=== PATIENT | male | born 1960 ===

== ENCOUNTER 2021-04-13 07:05 | Inpatient (IN) | payer SELFPAY ==
[~2021-04-13] VITALS: Ht 180.3 cm; Wt 88.8 kg
[2021-04-13] MEDS ORDERED: IPRATROPIUM BROM 0.5 MG/2.5ML INH SOL NEB ONE ×2 (07:30→12:30)
[2021-04-13] MEDS ORDERED: methylPREDNISolone SOD SUCC 125 MG/2 ML VL IV ONE (07:30)
[2021-04-13] MEDS ORDERED: SODIUM CHLORIDE 0.9% 1,000 ML IV ONE (07:30)
[2021-04-13] MEDS ORDERED: SODIUM CHLORIDE 0.9% 1,000 ML IVB ONE (07:30)
[2021-04-13] MEDS ORDERED: ALBUTEROL SULF 2.5 MG/0.5ML(0.5%) NEB SOLN NEB ONE ×2 (07:30→12:30)
[2021-04-13 09:28] LABS: Basophils # (auto) 0 10 ^3/uL (0-0.2); Basophils % (auto) 0.4 % (0.0-2.0); Eosinophils # (auto) 0.6 10 ^3/uL (0-0.8); Eosinophils % (auto) 9.2 % (0.0-7.0); Hematocrit 44.6 % (41.0-53.0); Hemoglobin 14.7 g/dL (13.5-17.5); Lymphocytes % (auto) 14.7 % (10.0-50.0); Mean Corpuscular Hemoglobin 30.1 pg (28.0-32.0); Mean Corpuscular Volume 91.2 fL (80.0-100.0); Monocytes # (auto) 0.8 10 ^3/uL (0-1.3); Monocytes % (auto) 11.6 % (0.0-12.0); Neutrophils # (auto) 4.3 10 ^3/uL (1.6-8.6); Neutrophils % (auto) 64.1 % (37.0-80.0); Nucleated Red Blood Cells % 0.1 %; Red Blood Cells 4.88 10^6/uL (4.5-5.90); Red Cell Distribution Width 13.6 % (11.8-14.3); White Blood Cell 6.8 10^3/uL (4.4-10.8)
[2021-04-13 09:31] LABS: Albumin 3.2 g/dL (3.4-5.0); Calcium 9.1 mg/dL (8.5-10.1)
[2021-04-13 09:35] LABS: BUN/Creatinine Ratio 24.3; Bilirubin, Total 0.5 mg/dL (0.2-1.0); Total Protein 7.4 g/dL (6.4-8.2)
[2021-04-13] MEDS ORDERED: MORPHINE SULFATE INJECTION 2 MG/ML SYRG IV PRN (12:30)
[2021-04-13] MEDS ORDERED: NITROGLYCERIN 0.4 MG SL TAB SL PRN (12:30)
[2021-04-13] MEDS ORDERED: LACTULOSE 20Gm/30ML SOLN PO PRN (12:45)
[2021-04-13] MEDS ORDERED: TEMAZEPAM 15 MG CAP PO PRN (12:45)
[2021-04-13] MEDS ORDERED: ACETAMINOPHEN 500 MG TAB PO PRN (12:45)
[2021-04-13] MEDS ORDERED: ALBUTEROL SULF 2.5 MG/0.5ML(0.5%) NEB SOLN NEB PRN (12:45)
[2021-04-13] MEDS ORDERED: PROMETHAZINE HCL 25 MG/ML 1ML IV PRN (12:45)
[2021-04-13] MEDS ORDERED: THIAMINE 100mg/ml INJ (200mg/2ml VIAL) IV ONE (12:45)
[2021-04-13] MEDS: SODIUM CHLORIDE 0.9% 1,000 ML IV SCH (12:45)
[2021-04-13] MEDS ORDERED: chlordiazePOXIDE HCL 25 MG CAP PO PRN (12:45)
[2021-04-13] MEDS ORDERED: DEXTROSE (50%) 50ML SYRG IV PRN (12:45)
[2021-04-13] MEDS ORDERED: traMADol HCL 50 MG TAB PO PRN (12:45)
[2021-04-13] MEDS: DOXYCYCLINE 100MG/250ML 250 ML IV SCH (14:30)
[2021-04-13] MEDS: ENOXAPARIN SOD 40 MG/0.4 ML SYRINGE SC SCH (16:52)
[2021-04-13 17:00] VITALS: BP 153/89
[2021-04-13] MEDS: ACCU-CHEK COMFORT CURVE STRIP VI SCH ×2 (17:00→22:00)
[2021-04-13] MEDS: chlordiazePOXIDE HCL 5 MG CAP PO SCH (18:00)
[2021-04-13] MEDS: IPRATROPIUM BROM 0.5 MG/2.5ML INH SOL NEB SCH (18:51)
[2021-04-13] MEDS: ALBUTEROL SULF 2.5 MG/0.5ML(0.5%) NEB SOLN NEB SCH (18:51)
[2021-04-13] MEDS: methylPREDNISolone SOD SUCC 40 MG/ML VL IV SCH (21:03)
[2021-04-13] MEDS: METOPROLOL TARTRATE 25 MG TAB PO SCH (21:04)
[2021-04-13] MEDS: ATORVASTATIN 20 MG TAB PO SCH (21:04)
[2021-04-13 21:51] VITALS: BP 132/88
[2021-04-14] MEDS: IPRATROPIUM BROM 0.5 MG/2.5ML INH SOL NEB SCH ×5 (00:17→23:39)
[2021-04-14] MEDS: DOXYCYCLINE 100MG/250ML 250 ML IV SCH ×2 (00:31→12:45)
[2021-04-14] MEDS: chlordiazePOXIDE HCL 5 MG CAP PO SCH ×4 (00:31→18:00)
[2021-04-14] MEDS: SODIUM CHLORIDE 0.9% 1,000 ML IV SCH ×2 (02:05→15:25)
[2021-04-14 03:58] VITALS: BP 128/67
[2021-04-14] MEDS: ACCU-CHEK COMFORT CURVE STRIP VI SCH ×4 (06:00→22:00)
[2021-04-14] MEDS: ALBUTEROL SULF 2.5 MG/0.5ML(0.5%) NEB SOLN NEB SCH ×6 (06:22→23:39)
[2021-04-14 06:25] LABS: Basophils # (auto) 0 10 ^3/uL (0-0.2); Basophils % (auto) 0.1 % (0.0-2.0); Eosinophils # (auto) 0 10 ^3/uL (0-0.8); Hematocrit 41.4 % (41.0-53.0); Lymphocytes # (auto) 0.5 10 ^3/uL (0.4-5.4); Lymphocytes % (auto) 6.8 % (10.0-50.0); Mean Corpuscular Hemoglobin 30.8 pg (28.0-32.0); Mean Corpuscular Hgb Conc. 33.8 g/dL (32.0-36.0); Mean Corpuscular Volume 91.2 fL (80.0-100.0); Monocytes # (auto) 0.2 10 ^3/uL (0-1.3); Neutrophils # (auto) 7.2 10 ^3/uL (1.6-8.6); Neutrophils % (auto) 91.1 % (37.0-80.0); Red Blood Cells 4.53 10^6/uL (4.5-5.90); Red Cell Distribution Width 13.5 % (11.8-14.3); White Blood Cell 7.9 10^3/uL (4.4-10.8)
[2021-04-14 06:29] LABS: Cholesterol 140 mg/dL (< 200); HDL Cholesterol 52 mg/dL (40-59); LDL Cholesterol 87 mg/dL (< 100); Triglycerides 49 mg/dL (< 150)
[2021-04-14 09:00] VITALS: BP 120/79
[2021-04-14] MEDS: methylPREDNISolone SOD SUCC 40 MG/ML VL IV SCH ×2 (09:00→22:28)
[2021-04-14 09:01] VITALS: BP 132/82
[2021-04-14] MEDS ORDERED: ENALAPRIL MALEATE 2.5 MG TAB PO SCH (10:00)
[2021-04-14] MEDS: METOPROLOL TARTRATE 25 MG TAB PO SCH ×2 (10:00→21:30)
[2021-04-14] MEDS: ASPirin 81 mg TAB PO SCH (10:00)
[2021-04-14] MEDS: NITROGLYCERIN 0.2MG/HR TOPICAL PATCH TD SCH (10:00)
[2021-04-14] MEDS: THIAMINE 100mg/ml INJ (200mg/2ml VIAL) IV SCH (10:00)
[2021-04-14 13:00] VITALS: BP 125/75
[2021-04-14] MEDS: ENOXAPARIN SOD 40 MG/0.4 ML SYRINGE SC SCH (15:00)
[2021-04-14 17:00] VITALS: BP 120/79
[2021-04-14] MEDS: ATORVASTATIN 20 MG TAB PO SCH (21:19)
[2021-04-14 22:00] VITALS: BP 118/85
[2021-04-15] MEDS: chlordiazePOXIDE HCL 5 MG CAP PO SCH ×4 (00:26→17:22)
[2021-04-15] MEDS: DOXYCYCLINE 100MG/250ML 250 ML IV SCH (00:26)
[2021-04-15] MEDS ORDERED: MONTELUKAST SODIUM 10 MG TAB PO ONE (04:15)
[2021-04-15] MEDS ORDERED: LABETALOL HCL 5 MG/ML 4ML SYRINGE IV PRN (04:15)
[2021-04-15 05:00] VITALS: BP 136/83
[2021-04-15] MEDS: SODIUM CHLORIDE 0.9% 1,000 ML IV SCH ×4 (05:00→06:35)
[2021-04-15] MEDS: IPRATROPIUM BROM 0.5 MG/2.5ML INH SOL NEB SCH ×3 (05:36→18:39)
[2021-04-15] MEDS: ALBUTEROL SULF 2.5 MG/0.5ML(0.5%) NEB SOLN NEB SCH ×3 (05:37→18:39)
[2021-04-15] MEDS ORDERED: FUROSEMIDE 20 MG/2 ML VIAL IV SCH (06:00)
[2021-04-15] MEDS: methylPREDNISolone SOD SUCC 40 MG/ML VL IV SCH ×3 (06:23→22:07)
[2021-04-15] MEDS: ACCU-CHEK COMFORT CURVE STRIP VI SCH ×4 (06:51→22:08)
[2021-04-15 06:52] LABS: Basophils # (auto) 0 10 ^3/uL (0-0.2); Basophils % (auto) 0.1 % (0.0-2.0); Eosinophils # (auto) 0 10 ^3/uL (0-0.8); Hematocrit 36.4 % (41.0-53.0); Hemoglobin 12.2 g/dL (13.5-17.5); Lymphocytes # (auto) 0.6 10 ^3/uL (0.4-5.4); Lymphocytes % (auto) 6.8 % (10.0-50.0); Mean Corpuscular Hemoglobin 30.5 pg (28.0-32.0); Mean Corpuscular Hgb Conc. 33.4 g/dL (32.0-36.0); Mean Corpuscular Volume 91.2 fL (80.0-100.0); Monocytes # (auto) 0.2 10 ^3/uL (0-1.3); Monocytes % (auto) 2.2 % (0.0-12.0); Neutrophils # (auto) 7.5 10 ^3/uL (1.6-8.6); Neutrophils % (auto) 90.9 % (37.0-80.0); Red Blood Cells 3.99 10^6/uL (4.5-5.90); Red Cell Distribution Width 13.3 % (11.8-14.3); White Blood Cell 8.2 10^3/uL (4.4-10.8)
[2021-04-15 07:05] LABS: Potassium 4.2 mmol/L (3.5-5.1)
[2021-04-15 07:08] LABS: INR 1.06 (0.9-1.15); Partial Thromboplastin Time 25.7 sec (23.6-33.0)
[2021-04-15 07:23] LABS: Albumin 2.5 g/dL (3.4-5.0); BUN/Creatinine Ratio 40.3; Bilirubin, Total 0.2 mg/dL (0.2-1.0); Calcium 8.2 mg/dL (8.5-10.1); Magnesium 2.5 mg/dL (1.6-2.6); Total Protein 5.9 g/dL (6.4-8.2)
[2021-04-15 08:00] VITALS: BP 138/82
[2021-04-15 09:44] LABS: Free T4 (Free Thyroxine) 2.91 ng/dL (0.89-1.76)
[2021-04-15 09:45] LABS: Free T3 8.85 pg/mL (2.3-4.2)
[2021-04-15] MEDS: THIAMINE 100mg/ml INJ (200mg/2ml VIAL) IV SCH (10:54)
[2021-04-15] MEDS: FAMOTIDINE (10MG/ML) 2ML VL IV SCH ×2 (10:54→22:07)
[2021-04-15] MEDS: AZITHROMYCIN 500MG/ 250ML 250 ML IV SCH (10:55)
[2021-04-15] MEDS: ASPirin 81 mg TAB PO SCH (10:55)
[2021-04-15] MEDS: METOPROLOL SUCCINATE XL 50 MG TAB PO SCH (10:58)
[2021-04-15] MEDS: NITROGLYCERIN 0.2MG/HR TOPICAL PATCH TD SCH (10:59)
[2021-04-15 12:00] VITALS: BP 133/90
[2021-04-15 16:00] VITALS: BP 140/82
[2021-04-15] MEDS: ENOXAPARIN SOD 40 MG/0.4 ML SYRINGE SC SCH (16:12)
[2021-04-15] MEDS ORDERED: IBUP200C3 PO (17:28)
[2021-04-15 22:00] VITALS: BP 146/92
[2021-04-15] MEDS ORDERED: ATORVASTATIN 20 MG TAB PO SCH (22:00)
[2021-04-15] MEDS: MONTELUKAST SODIUM 10 MG TAB PO SCH (22:06)
[2021-04-15] MEDS: methIMAzole 5 MG TAB PO SCH (22:07)
[2021-04-16] MEDS: chlordiazePOXIDE HCL 5 MG CAP PO SCH ×4 (00:19→18:10)
[2021-04-16] MEDS: ALBUTEROL SULF 2.5 MG/0.5ML(0.5%) NEB SOLN NEB SCH ×4 (00:41→19:25)
[2021-04-16] MEDS: IPRATROPIUM BROM 0.5 MG/2.5ML INH SOL NEB SCH ×4 (00:41→19:25)
[2021-04-16 05:00] VITALS: BP 143/85
[2021-04-16 05:42] LABS: Basophils # (auto) 0 10 ^3/uL (0-0.2); Basophils % (auto) 0.1 % (0.0-2.0); Eosinophils # (auto) 0 10 ^3/uL (0-0.8); Hematocrit 38.5 % (41.0-53.0); Hemoglobin 13.1 g/dL (13.5-17.5); Lymphocytes # (auto) 0.7 10 ^3/uL (0.4-5.4); Lymphocytes % (auto) 7.8 % (10.0-50.0); Mean Corpuscular Hemoglobin 30.9 pg (28.0-32.0); Mean Corpuscular Volume 90.7 fL (80.0-100.0); Monocytes # (auto) 0.2 10 ^3/uL (0-1.3); Monocytes % (auto) 2.3 % (0.0-12.0); Neutrophils # (auto) 7.6 10 ^3/uL (1.6-8.6); Neutrophils % (auto) 89.8 % (37.0-80.0); Nucleated Red Blood Cells % 0.1 %; Red Blood Cells 4.25 10^6/uL (4.5-5.90); Red Cell Distribution Width 13.2 % (11.8-14.3); White Blood Cell 8.5 10^3/uL (4.4-10.8)
[2021-04-16 06:05] LABS: INR 1.04 (0.9-1.15); Partial Thromboplastin Time 24.3 sec (23.6-33.0)
[2021-04-16 06:10] LABS: Albumin 2.7 g/dL (3.4-5.0); Calcium 8.2 mg/dL (8.5-10.1); Magnesium 2.5 mg/dL (1.6-2.6)
[2021-04-16 06:16] LABS: BUN/Creatinine Ratio 41.6; Bilirubin, Total 0.3 mg/dL (0.2-1.0); Phosphorus 3.4 mg/dL (2.5-4.90); Total Protein 6.1 g/dL (6.4-8.2)
[2021-04-16] MEDS: methylPREDNISolone SOD SUCC 40 MG/ML VL IV SCH ×3 (06:18→22:46)
[2021-04-16] MEDS: ACCU-CHEK COMFORT CURVE STRIP VI SCH ×4 (06:18→22:49)
[2021-04-16 09:00] VITALS: BP 154/91
[2021-04-16] MEDS: FAMOTIDINE (10MG/ML) 2ML VL IV SCH ×2 (09:44→22:45)
[2021-04-16] MEDS: METOPROLOL SUCCINATE XL 50 MG TAB PO SCH (09:45)
[2021-04-16] MEDS: THIAMINE 100mg/ml INJ (200mg/2ml VIAL) IV SCH (09:45)
[2021-04-16] MEDS: methIMAzole 5 MG TAB PO SCH ×2 (09:45→22:47)
[2021-04-16] MEDS: ASPirin 81 mg TAB PO SCH (09:45)
[2021-04-16] MEDS: AZITHROMYCIN 500MG/ 250ML 250 ML IV SCH (09:46)
[2021-04-16 13:00] VITALS: BP 158/83
[2021-04-16] MEDS: ENOXAPARIN SOD 40 MG/0.4 ML SYRINGE SC SCH (15:00)
[2021-04-16] MEDS ORDERED: FOLIC ACID 1 MG TAB PO ONE (15:30)
[2021-04-16 17:00] VITALS: BP 158/80
[2021-04-16 18:55] VITALS: BP 158/80
[2021-04-16] MEDS: ACETYLCYSTEINE 10 %(100MG/ML) SOL 4ML NEB SCH (19:25)
[2021-04-16 22:00] VITALS: BP 152/95
[2021-04-16] MEDS: MONTELUKAST SODIUM 10 MG TAB PO SCH (22:46)
[2021-04-17] MEDS: ALBUTEROL SULF 2.5 MG/0.5ML(0.5%) NEB SOLN NEB SCH ×4 (00:27→19:13)
[2021-04-17] MEDS: IPRATROPIUM BROM 0.5 MG/2.5ML INH SOL NEB SCH ×4 (00:27→19:13)
[2021-04-17] MEDS: chlordiazePOXIDE HCL 5 MG CAP PO SCH ×4 (00:29→19:43)
[2021-04-17 05:00] VITALS: BP 137/77
[2021-04-17] MEDS: methylPREDNISolone SOD SUCC 40 MG/ML VL IV SCH ×3 (05:56→21:18)
[2021-04-17] MEDS: ACCU-CHEK COMFORT CURVE STRIP VI SCH ×4 (05:58→22:23)
[2021-04-17] MEDS: ACETYLCYSTEINE 10 %(100MG/ML) SOL 4ML NEB SCH ×3 (06:40→19:13)
[2021-04-17 09:00] VITALS: BP 132/79
[2021-04-17] MEDS: FOLIC ACID 1 MG TAB PO SCH (09:47)
[2021-04-17] MEDS: methIMAzole 5 MG TAB PO SCH ×2 (09:47→21:21)
[2021-04-17] MEDS: ASPirin 81 mg TAB PO SCH (09:47)
[2021-04-17] MEDS: METOPROLOL SUCCINATE XL 50 MG TAB PO SCH (09:47)
[2021-04-17] MEDS: THIAMINE 100mg/ml INJ (200mg/2ml VIAL) IV SCH (09:48)
[2021-04-17] MEDS: AZITHROMYCIN 500MG/ 250ML 250 ML IV SCH (09:49)
[2021-04-17] MEDS: FAMOTIDINE (10MG/ML) 2ML VL IV SCH ×2 (09:53→21:17)
[2021-04-17 13:00] VITALS: BP 138/86
[2021-04-17] MEDS: ENOXAPARIN SOD 40 MG/0.4 ML SYRINGE SC SCH (14:47)
[2021-04-17 17:00] VITALS: BP 126/81
[2021-04-17] MEDS ORDERED: CEFTRIAXONE SODIUM 2 GM in D5W 5% 50 ML IV ONE (17:45)
[2021-04-17] MEDS: MONTELUKAST SODIUM 10 MG TAB PO SCH (21:19)
[2021-04-17 22:00] VITALS: BP 139/76
[2021-04-18] MEDS: IPRATROPIUM BROM 0.5 MG/2.5ML INH SOL NEB SCH ×3 (00:13→12:02)
[2021-04-18] MEDS: ALBUTEROL SULF 2.5 MG/0.5ML(0.5%) NEB SOLN NEB SCH ×3 (00:13→12:02)
[2021-04-18] MEDS: chlordiazePOXIDE HCL 5 MG CAP PO SCH ×3 (00:19→12:16)
[2021-04-18 05:00] VITALS: BP 140/79
[2021-04-18] MEDS: ACCU-CHEK COMFORT CURVE STRIP VI SCH ×2 (06:06→11:30)
[2021-04-18] MEDS: methylPREDNISolone SOD SUCC 40 MG/ML VL IV SCH ×2 (06:06→15:57)
[2021-04-18] MEDS: ACETYLCYSTEINE 10 %(100MG/ML) SOL 4ML NEB SCH ×2 (07:09→12:02)
[2021-04-18 09:00] VITALS: BP 143/93
[2021-04-18] MEDS ORDERED: cefTRIAXone 1GM/50ML D5W 50 ML IV SCH (09:00)
[2021-04-18] MEDS: AZITHROMYCIN 500MG/ 250ML 250 ML IV SCH (09:05)
[2021-04-18] MEDS: FAMOTIDINE (10MG/ML) 2ML VL IV SCH (09:06)
[2021-04-18] MEDS: ASPirin 81 mg TAB PO SCH (09:08)
[2021-04-18] MEDS: methIMAzole 5 MG TAB PO SCH (09:09)
[2021-04-18] MEDS: FOLIC ACID 1 MG TAB PO SCH (09:09)
[2021-04-18] MEDS: THIAMINE 100mg/ml INJ (200mg/2ml VIAL) IV SCH (09:50)
[2021-04-18] MEDS: METOPROLOL SUCCINATE XL 50 MG TAB PO SCH (09:53)
[2021-04-18 12:00] VITALS: BP 148/77
[2021-04-18] MEDS: ENOXAPARIN SOD 40 MG/0.4 ML SYRINGE SC SCH (15:00)
[2021-04-18 16:00] VITALS: BP 153/89
== END 2021-04-18 18:00 | disposition home or self-care (01) | DRG 193 ==
LOC: ER 07:05 → TELE 12:28 → TELE-WESTW 17:47
PROVIDERS: ADMIT Internal Medicine; ATTEND Internal Medicine
DX: J15.4 Pneumonia due to other streptococci (principal); I21.A1 Myocardial infarction type 2; J96.21 Acute and chronic respiratory failure with hypoxia; J44.1 Chronic obstructive pulmonary disease with (acute) exacerbation; E44.1 Mild protein-calorie malnutrition; F10.239 Alcohol dependence with withdrawal, unspecified; J44.0 Chronic obstructive pulmonary disease with (acute) lower respiratory infection; J45.901 Unspecified asthma with (acute) exacerbation; M35.1 Other overlap syndromes; J20.9 Acute bronchitis, unspecified; R73.03 Prediabetes; Z20.822 Contact with and (suspected) exposure to COVID-19; R00.0 Tachycardia, unspecified; E05.00 Thyrotoxicosis with diffuse goiter without thyrotoxic crisis or storm; I10 Essential (primary) hypertension; R73.9 Hyperglycemia, unspecified; Z68.27 Body mass index [BMI] 27.0-27.9, adult
CPT/HCPCS: 36415; 36600; 71045; 71250; 76536; 80053; 80061; 82550; 82805; 82962; 83036; 83735; 83880; 84100; 84439; 84443; 84480; 84481; 84484; 85025; 85379; 85610; 85652; 85730; 86141; 87070; 87077; 87205; 87426; 93005; 93306; 93971; 94640; 96361; 96374; 96375; G0378; J0696; J3490; J7060

== ENCOUNTER → 2021-08-14 | Outpatient (CLI) | payer MEDICAID ==
[~2021-08-14] MED LIST: IBUP200C3 PO
[2021-08-14 10:11] LABS: Basophils # (auto) 0 10 ^3/uL (0-0.2); Basophils % (auto) 0.7 % (0.0-2.0); Eosinophils # (auto) 0.8 10 ^3/uL (0-0.8); Eosinophils % (auto) 12.5 % (0.0-7.0); Hematocrit 47.5 % (41.0-53.0); Hemoglobin 15.8 g/dL (13.5-17.5); Lymphocytes # (auto) 1.9 10 ^3/uL (0.4-5.4); Lymphocytes % (auto) 31.1 % (10.0-50.0); Mean Corpuscular Hemoglobin 31.4 pg (28.0-32.0); Mean Corpuscular Hgb Conc. 33.2 g/dL (32.0-36.0); Mean Corpuscular Volume 94.6 fL (80.0-100.0); Monocytes # (auto) 0.5 10 ^3/uL (0-1.3); Monocytes % (auto) 7.5 % (0.0-12.0); Neutrophils # (auto) 2.9 10 ^3/uL (1.6-8.6); Neutrophils % (auto) 48.2 % (37.0-80.0); Nucleated Red Blood Cells % 0.1 %; Red Blood Cells 5.02 10^6/uL (4.5-5.90); Red Cell Distribution Width 13.3 % (11.8-14.3); White Blood Cell 6.1 10^3/uL (4.4-10.8)
[2021-08-14 10:14] LABS: Albumin 3.6 g/dL (3.4-5.0); Potassium 3.8 mmol/L (3.5-5.1)
[2021-08-14 10:21] LABS: Bilirubin, Total 0.8 mg/dL (0.2-1.0); Calcium 8.8 mg/dL (8.5-10.1); Total Protein 7.3 g/dL (6.4-8.2)
[2021-08-14 10:33] LABS: Free T4 (Free Thyroxine) 0.78 ng/dL (0.89-1.76); Prostate Specific Antigen 2.72 ng/mL (0.0-4.0)
== END | disposition home or self-care (01) ==
LOC: LAB 07:47
PROVIDERS: ATTEND Nurse Practitioner Family
DX: R73.03 Prediabetes (principal); E05.90 Thyrotoxicosis, unspecified without thyrotoxic crisis or storm; R06.02 Shortness of breath; I10 Essential (primary) hypertension
CPT/HCPCS: 36415; 80053; 80061; 83036; 84153; 84439; 84443; 85025

== ENCOUNTER 2021-08-24 10:37 | Inpatient (IN) | payer MEDICAID ==
[~2021-08-24] VITALS: Ht 180.3 cm; Wt 86.3 kg
[2021-08-24] MEDS ORDERED: SODIUM CHLORIDE 0.9% 1,000 ML IV ONE (11:30)
[2021-08-24] MEDS ORDERED: methylPREDNISolone SOD SUCC 125 MG/2 ML VL IV ONE (11:30)
[2021-08-24] MEDS ORDERED: IPRATROPIUM BROM 0.5 MG/2.5ML INH SOL NEB ONE ×2 (11:30→16:15)
[2021-08-24] MEDS ORDERED: ALBUTEROL SULF 2.5 MG/0.5ML(0.5%) NEB SOLN NEB ONE ×2 (11:30→16:15)
[2021-08-24 12:16] LABS: Basophils # (auto) 0 10 ^3/uL (0-0.2); Basophils % (auto) 0.5 % (0.0-2.0); Eosinophils # (auto) 0.8 10 ^3/uL (0-0.8); Eosinophils % (auto) 11.8 % (0.0-7.0); Hematocrit 46.6 % (41.0-53.0); Hemoglobin 15.6 g/dL (13.5-17.5); Lymphocytes # (auto) 1.2 10 ^3/uL (0.4-5.4); Lymphocytes % (auto) 16.6 % (10.0-50.0); Mean Corpuscular Hemoglobin 31.8 pg (28.0-32.0); Mean Corpuscular Hgb Conc. 33.6 g/dL (32.0-36.0); Mean Corpuscular Volume 94.6 fL (80.0-100.0); Monocytes # (auto) 0.6 10 ^3/uL (0-1.3); Monocytes % (auto) 7.9 % (0.0-12.0); Neutrophils # (auto) 4.4 10 ^3/uL (1.6-8.6); Neutrophils % (auto) 63.2 % (37.0-80.0); Red Blood Cells 4.93 10^6/uL (4.5-5.90); Red Cell Distribution Width 13.5 % (11.8-14.3)
[2021-08-24 12:19] LABS: Albumin 3.4 g/dL (3.4-5.0); Calcium 8.4 mg/dL (8.5-10.1); Potassium 4.1 mmol/L (3.5-5.1)
[2021-08-24 12:24] LABS: BUN/Creatinine Ratio 17.2; Bilirubin, Total 0.4 mg/dL (0.2-1.0); Total Protein 6.9 g/dL (6.4-8.2)
[2021-08-24] MEDS ORDERED: MORPHINE SULFATE INJECTION 2 MG/ML SYRG IV PRN ×2 (14:30→16:30)
[2021-08-24] MEDS ORDERED: NITROGLYCERIN 0.4 MG SL TAB SL PRN (14:30)
[2021-08-24] MEDS ORDERED: ATENOLOL 25 MG TAB PO ONE (16:15)
[2021-08-24] MEDS ORDERED: AZITHROMYCIN 500MG/ 250ML 250 ML IV ONE (16:15)
[2021-08-24] MEDS ORDERED: HYDROcodone-ACET 5/325MG TAB PO PRN ×2 (16:30)
[2021-08-24] MEDS ORDERED: DOCUSATE SOD 100 MG CAP PO PRN (16:30)
[2021-08-24] MEDS ORDERED: hydrALAZINE HCL 20 MG/ML VL IV PRN (16:30)
[2021-08-24] MEDS ORDERED: THIAMINE 100mg/ml INJ (200mg/2ml VIAL) IV ONE (16:30)
[2021-08-24] MEDS ORDERED: FAMOTIDINE (10MG/ML) 2ML VL IV ONE (16:30)
[2021-08-24] MEDS ORDERED: FOLIC ACID 1 MG TAB PO ONE (16:30)
[2021-08-24] MEDS ORDERED: LACTULOSE 20Gm/30ML SOLN PO PRN (16:30)
[2021-08-24] MEDS ORDERED: PROMETHAZINE-DM 5 ML ORAL SYRUP PO PRN (16:30)
[2021-08-24] MEDS ORDERED: LORazepam 0.5 MG TAB PO PRN (16:30)
[2021-08-24] MEDS ORDERED: HYDROcodone-ACET 5/325MG TAB PO ONE (16:30)
[2021-08-24] MEDS ORDERED: ONDANSETRON HCL 4 MG/2 ML VIAL IV PRN (16:30)
[2021-08-24] MEDS ORDERED: methIMAzole 5 MG TAB PO ONE (17:00)
[2021-08-24] MEDS: SODIUM CHLORIDE 0.9% 1,000 ML IV SCH ×2 (17:17→21:53)
[2021-08-24] MEDS: ALBUTEROL SULF 2.5 MG/0.5ML(0.5%) NEB SOLN NEB SCH ×2 (18:53→22:48)
[2021-08-24] MEDS: IPRATROPIUM BROM 0.5 MG/2.5ML INH SOL NEB SCH ×2 (18:54→22:48)
[2021-08-24] MEDS: BUDESONIDE (INHALATION) 0.5 MG/2 ML NEB NEB SCH (18:54)
[2021-08-24 19:35] LABS: Magnesium 2.2 mg/dL (1.6-2.6); Phosphorus 3.2 mg/dL (2.5-4.90)
[2021-08-24 20:20] LABS: INR 1.08 (0.9-1.15); Partial Thromboplastin Time 28.5 sec (23.6-33.0)
[2021-08-24] MEDS: ATORVASTATIN 20 MG TAB PO SCH (21:52)
[2021-08-24] MEDS: ATENOLOL 25 MG TAB PO SCH (21:52)
[2021-08-24] MEDS: PANTOPRAZOLE 40 MG/10 ML VIAL INJ IV SCH (21:52)
[2021-08-24] MEDS: methylPREDNISolone SOD SUCC 40 MG/ML VL IV SCH (21:52)
[2021-08-24 23:10] VITALS: BP 142/79
[2021-08-24 23:56] VITALS: BP 133/86
[2021-08-25] MEDS: ALBUTEROL SULF 2.5 MG/0.5ML(0.5%) NEB SOLN NEB SCH ×6 (02:00→22:08)
[2021-08-25] MEDS: IPRATROPIUM BROM 0.5 MG/2.5ML INH SOL NEB SCH ×6 (02:00→22:08)
[2021-08-25] MEDS ORDERED: ALB2.5IS (02:40)
[2021-08-25] MEDS ORDERED: METH5T PO (02:40)
[2021-08-25] MEDS ORDERED: METO-289 PO (02:40)
[2021-08-25] MEDS ORDERED: TIOT17SP PO (02:40)
[2021-08-25] MEDS ORDERED: MULT-928 PO (02:40)
[2021-08-25] MEDS ORDERED: ALBUAER3 INH (02:40)
[2021-08-25 04:54] VITALS: BP_SYST 108; BP_SYST 131; BP_DIAS 59; BP_DIAS 80
[2021-08-25 05:07] LABS: Urine Bacteria NONE SEEN /hpf (None Seen); Urine Blood Negative /uL (Negative); Urine Specific Gravity 1.015 (1.001-1.035); Urine WBC 1 /hpf (0 - 3)
[2021-08-25] MEDS: methylPREDNISolone SOD SUCC 40 MG/ML VL IV SCH ×3 (05:07→22:22)
[2021-08-25 05:18] LABS: Alcohol, Urine < 3.0 mg/dL (0-10); Amphetamine Screen, Urine POSITIVE (NEGATIVE); Benzodiazephine Screen, Urine NEGATIVE (NEGATIVE); Cannabinoid Screen, Urine NEGATIVE (NEGATIVE); Cocaine Screen, Urine NEGATIVE (NEGATIVE); Opiate Scree,Urine NEGATIVE (NEGATIVE); Phencyclidine Screen, Urine NEGATIVE (NEGATIVE)
[2021-08-25 05:26] LABS: Barbiturate Scree,Urine NEGATIVE (NEGATIVE)
[2021-08-25 07:20] LABS: INR 1.07 (0.9-1.15); Partial Thromboplastin Time 27.9 sec (23.6-33.0)
[2021-08-25 08:00] LABS: CRP High Sensitivity 0.66 mg/dL (< 0.3); Magnesium 2.2 mg/dL (1.6-2.6); Phosphorus 4.4 mg/dL (2.5-4.90); Uric Acid 6.8 mg/dL (3.5-7.2)
[2021-08-25 09:00] VITALS: BP 137/81
[2021-08-25] MEDS ORDERED: ENOXAPARIN SOD 40 MG/0.4 ML SYRINGE SC SCH (10:00)
[2021-08-25] MEDS ORDERED: FAMOTIDINE (10MG/ML) 2ML VL IV SCH (10:00)
[2021-08-25] MEDS: BUDESONIDE (INHALATION) 0.5 MG/2 ML NEB NEB SCH ×2 (10:03→18:04)
[2021-08-25] MEDS: PANTOPRAZOLE 40 MG/10 ML VIAL INJ IV SCH (10:36)
[2021-08-25] MEDS: AZITHROMYCIN 500MG/ 250ML 250 ML IV SCH (10:36)
[2021-08-25] MEDS: methIMAzole 5 MG TAB PO SCH (10:37)
[2021-08-25] MEDS: THIAMINE HCL 100 MG TAB PO SCH (10:37)
[2021-08-25] MEDS: FOLIC ACID 1 MG TAB PO SCH (10:38)
[2021-08-25] MEDS: ASPirin 81 mg TAB PO SCH (10:39)
[2021-08-25] MEDS: ATENOLOL 25 MG TAB PO SCH ×2 (10:39→22:23)
[2021-08-25] MEDS ORDERED: MONTELUKAST SODIUM 10 MG TAB PO ONE (10:45)
[2021-08-25 13:00] VITALS: BP 140/54
[2021-08-25 17:00] VITALS: BP 109/67
[2021-08-25 22:00] VITALS: BP 126/67
[2021-08-25] MEDS: MONTELUKAST SODIUM 10 MG TAB PO SCH (22:22)
[2021-08-25] MEDS: ATORVASTATIN 20 MG TAB PO SCH (22:23)
[2021-08-26] MEDS: SODIUM CHLORIDE 0.9% 1,000 ML IV SCH (01:42)
[2021-08-26] MEDS: ALBUTEROL SULF 2.5 MG/0.5ML(0.5%) NEB SOLN NEB SCH ×5 (02:00→22:08)
[2021-08-26] MEDS: IPRATROPIUM BROM 0.5 MG/2.5ML INH SOL NEB SCH ×5 (02:00→22:08)
[2021-08-26 05:00] VITALS: BP 123/64
[2021-08-26 05:35] LABS: Basophils # (auto) 0 10 ^3/uL (0-0.2); Basophils % (auto) 0.1 % (0.0-2.0); Eosinophils # (auto) 0 10 ^3/uL (0-0.8); Hematocrit 41.8 % (41.0-53.0); Hemoglobin 13.9 g/dL (13.5-17.5); Lymphocytes # (auto) 0.6 10 ^3/uL (0.4-5.4); Mean Corpuscular Hemoglobin 32.2 pg (28.0-32.0); Mean Corpuscular Hgb Conc. 33.4 g/dL (32.0-36.0); Mean Corpuscular Volume 96.4 fL (80.0-100.0); Monocytes # (auto) 0.2 10 ^3/uL (0-1.3); Monocytes % (auto) 2.1 % (0.0-12.0); Neutrophils # (auto) 8.9 10 ^3/uL (1.6-8.6); Neutrophils % (auto) 91.8 % (37.0-80.0); Red Blood Cells 4.34 10^6/uL (4.5-5.90); Red Cell Distribution Width 13.2 % (11.8-14.3); White Blood Cell 9.7 10^3/uL (4.4-10.8)
[2021-08-26 05:47] LABS: INR 1.05 (0.9-1.15); Partial Thromboplastin Time 27.5 sec (23.6-33.0)
[2021-08-26 06:04] LABS: Potassium 4.3 mmol/L (3.5-5.1)
[2021-08-26 06:08] LABS: Albumin 2.9 g/dL (3.4-5.0); BUN/Creatinine Ratio 20.9; Calcium 8.4 mg/dL (8.5-10.1)
[2021-08-26 06:10] LABS: Bilirubin, Total 0.2 mg/dL (0.2-1.0)
[2021-08-26] MEDS: methylPREDNISolone SOD SUCC 40 MG/ML VL IV SCH ×3 (06:31→23:11)
[2021-08-26] MEDS: BUDESONIDE (INHALATION) 0.5 MG/2 ML NEB NEB SCH ×2 (06:35→18:52)
[2021-08-26 08:00] VITALS: BP 137/71
[2021-08-26] MEDS ORDERED: VANCOMYCIN PER PHARMACY 0 MG IV SCH (10:00)
[2021-08-26] MEDS: AZITHROMYCIN 500MG/ 250ML 250 ML IV SCH (10:42)
[2021-08-26] MEDS: ASPirin 81 mg TAB PO SCH (10:43)
[2021-08-26] MEDS: FOLIC ACID 1 MG TAB PO SCH (10:43)
[2021-08-26] MEDS: THIAMINE HCL 100 MG TAB PO SCH (10:44)
[2021-08-26] MEDS: methIMAzole 5 MG TAB PO SCH (10:55)
[2021-08-26 12:00] VITALS: BP 139/84
[2021-08-26] MEDS ORDERED: VANCOMYCIN 1GM/250ML 250 ML IV SCH ×2 (12:00→21:00)
[2021-08-26 16:00] VITALS: BP 138/83
[2021-08-26] MEDS: FAMOTIDINE 20 MG TAB PO SCH (17:31)
[2021-08-26] MEDS: METOPROLOL SUCCINATE XL 50 MG TAB PO SCH (17:32)
[2021-08-26 22:49] VITALS: BP 122/73
[2021-08-26] MEDS: ATORVASTATIN 20 MG TAB PO SCH (23:10)
[2021-08-26] MEDS: MONTELUKAST SODIUM 10 MG TAB PO SCH (23:10)
[2021-08-27] MEDS: IPRATROPIUM BROM 0.5 MG/2.5ML INH SOL NEB SCH ×6 (02:04→22:03)
[2021-08-27] MEDS: ALBUTEROL SULF 2.5 MG/0.5ML(0.5%) NEB SOLN NEB SCH ×6 (02:04→22:03)
[2021-08-27] MEDS: VANCOMYCIN 1GM/250ML 250 ML IV SCH ×2 (06:36→17:19)
[2021-08-27] MEDS: methylPREDNISolone SOD SUCC 40 MG/ML VL IV SCH ×2 (06:36→17:20)
[2021-08-27 08:00] VITALS: BP 134/70
[2021-08-27] MEDS: AZITHROMYCIN 500MG/ 250ML 250 ML IV SCH (10:04)
[2021-08-27] MEDS: ASPirin 81 mg TAB PO SCH (10:04)
[2021-08-27] MEDS: THIAMINE HCL 100 MG TAB PO SCH (10:04)
[2021-08-27] MEDS: FOLIC ACID 1 MG TAB PO SCH (10:05)
[2021-08-27] MEDS: FAMOTIDINE 20 MG TAB PO SCH (10:05)
[2021-08-27] MEDS: methIMAzole 5 MG TAB PO SCH (10:05)
[2021-08-27] MEDS: METOPROLOL SUCCINATE XL 50 MG TAB PO SCH (10:06)
[2021-08-27] MEDS: BUDESONIDE (INHALATION) 0.5 MG/2 ML NEB NEB SCH ×2 (10:06→22:03)
[2021-08-27 12:00] VITALS: BP 141/74
[2021-08-27 16:00] VITALS: BP 161/90
[2021-08-27] MEDS ORDERED: hydrALAZINE HCL 20 MG/ML VL IV PRN (17:00)
[2021-08-27] MEDS: LISINOPRIL 10 MG TAB PO SCH (17:21)
[2021-08-27] MEDS: MONTELUKAST SODIUM 10 MG TAB PO SCH (21:07)
[2021-08-27] MEDS: ATORVASTATIN 20 MG TAB PO SCH (21:07)
[2021-08-27 22:00] VITALS: BP 129/68
[2021-08-28] MEDS: ALBUTEROL SULF 2.5 MG/0.5ML(0.5%) NEB SOLN NEB SCH ×6 (02:08→21:18)
[2021-08-28] MEDS: IPRATROPIUM BROM 0.5 MG/2.5ML INH SOL NEB SCH ×6 (02:08→21:18)
[2021-08-28 05:00] VITALS: BP 130/75
[2021-08-28] MEDS: methylPREDNISolone SOD SUCC 40 MG/ML VL IV SCH ×2 (05:05→18:03)
[2021-08-28] MEDS: BUDESONIDE (INHALATION) 0.5 MG/2 ML NEB NEB SCH ×2 (05:53→17:41)
[2021-08-28] MEDS: VANCOMYCIN 1GM/250ML 250 ML IV SCH (06:59)
[2021-08-28 09:00] VITALS: BP 128/73
[2021-08-28] MEDS: ASPirin 81 mg TAB PO SCH (09:54)
[2021-08-28] MEDS: AZITHROMYCIN 500MG/ 250ML 250 ML IV SCH (09:54)
[2021-08-28] MEDS: FOLIC ACID 1 MG TAB PO SCH (09:55)
[2021-08-28] MEDS: methIMAzole 5 MG TAB PO SCH (09:56)
[2021-08-28] MEDS: THIAMINE HCL 100 MG TAB PO SCH (09:56)
[2021-08-28] MEDS: FAMOTIDINE 20 MG TAB PO SCH (09:56)
[2021-08-28] MEDS: METOPROLOL SUCCINATE XL 50 MG TAB PO SCH (09:57)
[2021-08-28] MEDS: LISINOPRIL 10 MG TAB PO SCH (09:57)
[2021-08-28 13:00] VITALS: BP 128/75
[2021-08-28] MEDS ORDERED: levoFLOXacin 500MG 100 ML IV ONE (13:15)
[2021-08-28 15:00] VITALS: BP 124/80
[2021-08-28] MEDS ORDERED: VANCOMYCIN 1GM/250ML 250 ML IV SCH (15:00)
[2021-08-28] MEDS: ATORVASTATIN 20 MG TAB PO SCH (21:00)
[2021-08-28] MEDS: MONTELUKAST SODIUM 10 MG TAB PO SCH (21:00)
[2021-08-28 22:00] VITALS: BP 136/82
[2021-08-28 22:13] VITALS: BP 124/80
[2021-08-29] MEDS: IPRATROPIUM BROM 0.5 MG/2.5ML INH SOL NEB SCH ×3 (01:08→10:53)
[2021-08-29] MEDS: ALBUTEROL SULF 2.5 MG/0.5ML(0.5%) NEB SOLN NEB SCH ×3 (01:09→10:53)
[2021-08-29 05:00] VITALS: BP 139/87
[2021-08-29] MEDS: methylPREDNISolone SOD SUCC 40 MG/ML VL IV SCH (05:33)
[2021-08-29] MEDS: BUDESONIDE (INHALATION) 0.5 MG/2 ML NEB NEB SCH (06:35)
[2021-08-29 06:57] LABS: BUN/Creatinine Ratio 32.1; Calcium 8.1 mg/dL (8.5-10.1); Potassium 3.8 mmol/L (3.5-5.1)
[2021-08-29 07:01] LABS: Basophils # (auto) 0 10 ^3/uL (0-0.2); Eosinophils # (auto) 0 10 ^3/uL (0-0.8); Hematocrit 42.1 % (41.0-53.0); Hemoglobin 14.7 g/dL (13.5-17.5); Lymphocytes # (auto) 0.7 10 ^3/uL (0.4-5.4); Lymphocytes % (auto) 8.9 % (10.0-50.0); Mean Corpuscular Hemoglobin 32.6 pg (28.0-32.0); Mean Corpuscular Hgb Conc. 34.8 g/dL (32.0-36.0); Mean Corpuscular Volume 93.6 fL (80.0-100.0); Monocytes # (auto) 0.4 10 ^3/uL (0-1.3); Monocytes % (auto) 5.4 % (0.0-12.0); Neutrophils # (auto) 6.9 10 ^3/uL (1.6-8.6); Neutrophils % (auto) 85.7 % (37.0-80.0); Nucleated Red Blood Cells % 0.1 %; Red Cell Distribution Width 13.3 % (11.8-14.3); White Blood Cell 8.1 10^3/uL (4.4-10.8)
[2021-08-29 09:00] VITALS: BP 132/81
[2021-08-29] MEDS ORDERED: LEVO500T31 PO (09:27)
[2021-08-29] MEDS ORDERED: ALBUAER3 IN (09:27)
[2021-08-29] MEDS ORDERED: PRED20TA2 PO (09:27)
[2021-08-29] MEDS ORDERED: levoFLOXacin 500MG 100 ML IV SCH (10:00)
[2021-08-29] MEDS: THIAMINE HCL 100 MG TAB PO SCH (10:00)
[2021-08-29] MEDS: METOPROLOL SUCCINATE XL 50 MG TAB PO SCH (10:00)
[2021-08-29] MEDS: LISINOPRIL 10 MG TAB PO SCH (10:00)
[2021-08-29] MEDS: FAMOTIDINE 20 MG TAB PO SCH (10:30)
[2021-08-29] MEDS: ASPirin 81 mg TAB PO SCH (10:30)
[2021-08-29] MEDS: FOLIC ACID 1 MG TAB PO SCH (10:30)
[2021-08-29] MEDS: methIMAzole 5 MG TAB PO SCH (10:30)
[2021-08-29 12:43] VITALS: BP 126/79
== END 2021-08-29 13:00 | disposition home or self-care (01) | DRG 133 ==
LOC: ER 10:37 → TELE 14:33 → TELE-CENTR 23:10 → CENTRAL 08-26 19:43
PROVIDERS: ADMIT Hospitalist; ATTEND Family Medicine
DX: J96.20 Acute and chronic respiratory failure, unspecified whether with hypoxia or hypercapnia (principal); J15.211 Pneumonia due to Methicillin susceptible Staphylococcus aureus; J44.1 Chronic obstructive pulmonary disease with (acute) exacerbation; E05.00 Thyrotoxicosis with diffuse goiter without thyrotoxic crisis or storm; I10 Essential (primary) hypertension; E78.5 Hyperlipidemia, unspecified; Z20.822 Contact with and (suspected) exposure to COVID-19; E66.9 Obesity, unspecified; F15.10 Other stimulant abuse, uncomplicated; Z71.51 Drug abuse counseling and surveillance of drug abuser; Z68.24 Body mass index [BMI] 24.0-24.9, adult; Z91.19 Patient's noncompliance with other medical treatment and regimen
CPT/HCPCS: 36415; 36600; 71045; 80048; 80053; 80061; 80202; 80307; 81001; 82565; 82728; 82805; 83615; 83690; 83735; 83880; 84100; 84443; 84484; 84550; 85025; 85379; 85610; 85730; 86141; 87040; 87070; 87077; 87086; 87186; 87205; 87426; 93005; 94640; 96361; 96365; 96375; C9113; G0378; J1956; J3490